=== PATIENT | male | born 1980 | race Caucasian/White ===

== ENCOUNTER 2017-10-07 23:33 | Emergency (ER) | payer BC, OTHER ==
[~2017-10-07] VITALS: Ht 172.7 cm; Wt 99.8 kg
[2017-10-07 23:45] VITALS: BP_SYST 154
--- NOTE | 2017-10-08 00:13 | NUR ---
Placed in room 04 . Placed on news producer, blood pressure machine and pulse oximeter. To gown for exam. Side rails up. Report given to MAGNUS Cameron.
--- NOTE | 2017-10-08 00:14 | NUR ---
Patient AAOx4, ambulatory. Patient states he was "ice skating at 1900 this evening and fell backward". Patient states he hit his head and denies pain to any other areas of his body. Patient states having a headache with pain scale 2/10 at this time. Patient stated having dizziness immediately after the incident but denies dizziness at this time. No active bleeding noted and no hematoma noted to patient's posterior head. Patient denies any other complaints.
--- NOTE | 2017-10-08 00:31 | NUR ---
ER Dr. Lindsey at bedside examining patient.
[2017-10-08 02:10] VITALS: BP_SYST 142
--- NOTE | 2017-10-08 02:10 | NUR ---
Patient given written and verbal discharge instructions and verbalizes understanding. ER MD discussed with patient the results and treatment provided. Patient in stable condition. ID arm band removed. Rx of tylenol given. Patient educated on pain management and to follow up with PMD. Pain Scale 0/10. Opportunity for questions provided and answered.
== END 2017-10-08 02:10 | disposition home or self-care (01) ==
LOC: SED 23:33
DX: S00.03XA Contusion of scalp, initial encounter (principal); F41.9 Anxiety disorder, unspecified; E78.00 Pure hypercholesterolemia, unspecified; Z90.49 Acquired absence of other specified parts of digestive tract; W01.0XXA Fall on same level from slipping, tripping and stumbling without subsequent striking against object, initial encounter; Y93.89 Activity, other specified; Y92.89 Other specified places as the place of occurrence of the external cause; Y99.8 Other external cause status
CPT/HCPCS: 70450-TC; 99284